=== PATIENT | female | born 1960 | race Caucasian/White ===

== ENCOUNTER → 2020-07-15 | Outpatient (CLI) | payer MEDICARE | END | disposition home or self-care (01) | LOC: RAH 13:00 | PROVIDERS: ATTEND Family Medicine | DX: M25.552 Pain in left hip (principal) | CPT/HCPCS: 73700 ==

== ENCOUNTER 2020-12-14 05:52 | Day surgery (SDC) | payer MEDICARE ==
[2020-12-13 09:38] VITALS: BP 156/88
[~2020-12-14] VITALS: Ht 157.5 cm; Wt 52.9 kg
[2020-12-14] VITALS (16 sets, daily range): BP systolic 128–169; BP diastolic 75–99
[~2020-12-14 05:52] MED LIST: ESCI10TA PO; HYDR200T4 PO; LISI10TA24 PO; TIZA4TAB5 PO
[2020-12-14] MEDS ORDERED: LACTATED RINGERS 1000ML 1,000 ML IV ONE (06:25)
[2020-12-14] MEDS: CEFAZOLIN SODIUM 1 GM VIAL ONE ×2 (06:29→07:49)
[2020-12-14] MEDS ORDERED: LIDOCAINE HCL 1% 20 ML VIAL ONE (07:21)
[2020-12-14] MEDS ORDERED: LIDOCAINE 1%-EPI 1:100,000 20 ML VIAL IJ ONE (07:21)
[2020-12-14] MEDS ORDERED: FENTANYL CITRATE PF 50 MCG/1 ML 2ML VIAL ONE (07:30)
[2020-12-14] MEDS ORDERED: PROPOFOL 10 MG/ML 20ML VIAL IV ONE (07:30)
[2020-12-14] MEDS ORDERED: LIDOCAINE PF 2% 5ML ABBOJECT ONE (07:30)
[2020-12-14] MEDS ORDERED: MIDAZOLAM HCL 1 MG/ML 2ML VIAL ONE (07:31)
== END 2020-12-14 10:35 | disposition home or self-care (01) ==
LOC: DAH 05:52
PROVIDERS: ATTEND Otolaryngology Plastic Surgery within the Head & Neck
DX: C44.309 Unspecified malignant neoplasm of skin of other parts of face (principal); I10 Essential (primary) hypertension; Z88.5 Allergy status to narcotic agent; Z88.8 Allergy status to other drugs, medicaments and biological substances; Z90.89 Acquired absence of other organs; Z90.49 Acquired absence of other specified parts of digestive tract; Z20.828 Contact with and (suspected) exposure to other viral communicable diseases
CPT/HCPCS: 11644; A4215; A4221; A4222; A4223; A4606; A4663; A6260; C9803; J0690; J2001; J2250; J2704; J3010; J3490; J7120; U0003